=== PATIENT | female | born 1980 | race Caucasian/White ===

== ENCOUNTER 2018-04-17 10:45 | Emergency (ER) | payer BC, OTHER ==
[2018-04-17] MEDS: TETRACAINE 0.5% 4 ML OPH RIGHT EYE (11:23)
[2018-04-17] MEDS: FLUORESCEIN STRIP RIGHT EYE (11:23)
== END 2018-04-17 11:48 | disposition home or self-care (01) ==
LOC: FTE 10:45
DX: H57.11 Ocular pain, right eye (principal); B02.9 Zoster without complications; R40.2412 Glasgow coma scale score 13-15, at arrival to emergency department; Z87.891 Personal history of nicotine dependence
CPT/HCPCS: 99283